=== PATIENT | female | born 1935 | race Caucasian/White ===

== ENCOUNTER 2020-06-11 11:56 | Emergency (ER) | payer MEDICARE, OTHER ==
[2020-06-11] MEDS ORDERED: ONDANSETRON HCL INJ/PF 4 MG/2 ML SDV IV ONE ×2 (12:42→14:05)
[2020-06-11] MEDS ORDERED: RINGERS SOLUTION,LACTATED 1,000 ML IV ONE (12:42)
[2020-06-11] MEDS ORDERED: MORPHINE SULFATE 10 MG/ML INJ IV ONE ×2 (12:42→14:05)
--- NOTE | 2020-06-11 12:44 | ER Document Report ---
ED Medical Screen (RME) - General Stated Complaint: SIDE PAIN, BLOOD PRESSURE ISSUE Time Seen by Provider: 06/11/20 12:36 Primary Care Provider: ROSA BECK MD [Primary Care Provider] - Follow up as needed Mode of Arrival: Wheelchair Information source: Patient Notes: HPI; 85-year-old female presents emergency room stating that her blood pressure was elevated this morning states systolic was greater than 200. She does not member her diastolic. Also states she started with some sudden sharp right- sided abdominal pain earlier today. Complains of nausea with vomiting. No fevers. No urinary symptoms. Did not take any medications for her symptoms. Denies any recent travel. No COVID-19 exposure. PE: Alert and oriented x3. Mild distress noted. Lungs: Clear to auscultation without rales, rhonchi, wheezes. Heart: Regular rate rhythm without murmurs, rubs, gallops. I have greeted and performed a rapid initial assessment of this patient. A comprehensive ED assessment and evaluation of the patient, analysis of test results and completion of the medical decision making process will be conducted by additional ED providers. I have specifically instructed the patient or family members with the patient to immediately return to any nursing staff should anything change in the patient's condition or with their chief complaint. TRAVEL OUTSIDE OF THE [place] IN LAST 30 DAYS: No Physical Exam - Vital signs Vitals: Temp Pulse Resp BP Pulse Ox 97.9 F 76 16 188/81 H 99 06/11/20 12:30 06/11/20 12:30 06/11/20 12:30 06/11/20 12:30 06/11/20 12:30 Course - Vital Signs Vital signs: Temp Pulse Resp BP Pulse Ox 97.9 F 76 16 188/81 H 99 06/11/20 12:30 06/11/20 12:30 06/11/20 12:30 06/11/20 12:30 06/11/20 12:30 Doctor's Discharge - Discharge Referrals: ROSA BECK MD [Primary Care Provider] - Follow up as needed
[2020-06-11 13:23] LABS: ABSOLUTE LYMPHOCYTES (AUTO) 1.1 10^3/uL (0.5-4.7); ABSOLUTE MONOCYTES (AUTO) 0.3 10^3/uL (0.1-1.4); ABSOLUTE NEUT (AUTO) 7.3 10^3/uL (1.7-8.2); BASOPHILS % (AUTO) 0.5 % (0-2); EOSINOPHILS % (AUTO) 0.2 % (0-6); HEMATOCRIT 40.1 % (36.0-47.0); HEMOGLOBIN 13.8 g/dL (12.0-15.5); LYMPHOCYTES % (AUTO) 12.5 % (13-45); MEAN CORPUSCULAR HEMOGLOBIN 28.9 pg (27.0-33.4); MEAN CORPUSCULAR HGB CONC 34.3 g/dL (32.0-36.0); MEAN CORPUSCULAR VOLUME 84 fl (80-97); PLATELET COUNT 232 10^3/uL (150-450); RED BLOOD COUNT 4.76 10^6/uL (3.72-5.28); RED CELL DISTRIBUTION WIDTH 14.5 % (11.5-14.0); SEGMENTED NEUTROPHILS % (AUTO) 83.8 % (42-78); TOTAL CELLS COUNTED % (AUTO) 100 %; WHITE BLOOD COUNT 8.7 10^3/uL (4.0-10.5)
[2020-06-11 13:45] LABS: ALBUMIN 4.6 g/dL (3.5-5.0); ALKALINE PHOSPHATASE 90 U/L (38-126); ANION GAP 12 (5-19); ASPARTATE AMINO TRANSFERASE 22 U/L (14-36); BILIRUBIN,TOTAL 1.4 mg/dL (0.2-1.3); BLOOD UREA NITROGEN 33 mg/dL (7-20); CALCIUM 10.3 mg/dL (8.4-10.2); CARBON DIOXIDE 25 mmol/L (22-30); CHLORIDE 104 mmol/L (98-107); GLUCOSE 142 mg/dL (75-110); POTASSIUM 4.4 mmol/L (3.6-5.0); TOTAL PROTEIN 7.8 g/dL (6.3-8.2)
[2020-06-11 13:55] LABS: APPEARANCE,URINE SLIGHTLY-CLOUDY; BILIRUBIN,URINE NEGATIVE (NEGATIVE); COLOR,URINE YELLOW; GLUCOSE, URINE NEGATIVE (NEGATIVE); KETONES,URINE NEGATIVE (NEGATIVE); LEUKOCYTE ESTERASE,URINE NEGATIVE (NEGATIVE); NITRITE,URINE NEGATIVE (NEGATIVE); PROTEIN,URINE NEGATIVE (NEGATIVE); URINE SPECIFIC GRAVITY 1.019; UROBILINOGEN,URINE NEGATIVE mg/dL (<2.0)
--- NOTE | 2020-06-11 14:27 | RADIOLOGY REPORT (SQ) ---
EXAM DESCRIPTION: CT ABD/PELVIS WITH IV ONLY IMAGES COMPLETED DATE/TIME: 06/11/2020 2:17 pm REASON FOR STUDY: abdominal pain COMPARISON: None. TECHNIQUE: CT scan of the abdomen and pelvis performed using helical scanning technique with dynamic intravenous contrast injection. No oral contrast. Images reviewed with lung, soft tissue, and bone windows. Reconstructed coronal and sagittal MPR images reviewed. Delayed images for evaluation of the urinary system also acquired. All images stored on PACS. All CT scanners at this facility use dose modulation, iterative reconstruction, and/or weight based d osing when appropriate to reduce radiation dose to as low as reasonably achievable (ALARA). [facility]: Dose Right [facility]: CareDose [facility]: Dose Right [facility]: Teradose 4D [facility]: KOTURA CONTRAST TYPE AND DOSE: 88 mL Omnipaque 350- low osmolar. RENAL FUNCTION: BUN 33, creatinine 1.09 RADIATION DOSE: . LIMITATIONS: None. FINDINGS: LOWER CHEST: No significant findings. No nodules or infiltrates. LIVER: Normal size. No masses. No dilated ducts. SPLEEN: Normal size. No focal lesions. PANCREAS: No masses. No significant calcifications. No adjacent inflammation or peripancreatic fluid collections. Pancreatic duct not dilated. GALLBLADDER: No identified stones by CT criteria. No inflammatory changes to suggest cholecystitis. ADRENAL GLANDS: No significant masses or asymmetry. RIGHT KIDNEY AND URETER: No solid masses. 2 to 3 mm right UVJ stone. Additional 3 to 4 mm nonobstr ucting stone in the upper pole. Moderate right-sided hydronephrosis and hydroureter. There is righ t perinephric stranding. LEFT KIDNEY AND URETER: No solid masses. No significant calcifications. No hydronephrosis or hydr oureter. AORTA AND VESSELS: No aneurysm. No dissection. Renal arteries, SMA, celiac without stenosis. RETROPERITONEUM: No retroperitoneal adenopathy, hemorrhage or masses. BOWEL AND PERITONEAL CAVITY: No masses or inflammatory changes. No free fluid or peritoneal masses. APPENDIX: Degenerative changes PELVIS: No mass. No free fluid. Normal bladder. ABDOMINAL WALL: Not visualized. BONES: Degenerative changes in the spine OTHER: No other significant finding. IMPRESSION: Right-sided hydronephrosis, hydroureter and perinephric stranding secondary to a 2 to 3 mm right UVJ stone. No other significant findings. TECHNICAL DOCUMENTATION: JOB ID: [id number] Quality ID # [id number]: Final reports with documentation of one or more dose reduction techniques (e.g., Au tomated exposure control, adjustment of the mA and/or kV according to patient size, use of iterative reconstruction technique) 2010 [employer]- All Rights Reserved Reading location - IP/workstation name: [email or web address]
--- NOTE | 2020-06-11 15:49 | ER Document Report ---
ED General - General Chief Complaint: Abdominal Pain Stated Complaint: SIDE PAIN, BLOOD PRESSURE ISSUE Time Seen by Provider: 06/11/20 12:36 Primary Care Provider: ROSA BECK MD [ACTIVE STAFF] - Follow up as needed Mode of Arrival: Wheelchair Information source: Patient TRAVEL OUTSIDE OF THE [place] IN LAST 30 DAYS: No - HPI Notes: Patient presents and complains of right lower abdominal pain. States it started this morning. Is been constant. Is severe. It does not radiate. Nothing makes it better or worse. No problems with urination or bowel movements. She has had one episode of vomiting. Patient denies any previous abdominal surgeries. No fever sweats or chills. - Related Data Allergies/Adverse Reactions: aspirin Allergy (Verified 06/11/20 13:37) Barbiturates Allergy (Verified 06/11/20 12:50) lidocaine [From Xylocaine] Allergy (Verified 06/11/20 12:50) Sulfa (Sulfonamide Antibiotics) Adverse Reaction (Verified 06/11/20 12:50) Past Medical History - General Information source: Patient - Social History Smoking Status: Never Smoker Frequency of alcohol use: None Drug Abuse: None Family History: Reviewed & Not Pertinent Patient has homicidal ideation: No - Past Medical History Cardiac Medical History: Reports: Hx Hypertension Pulmonary Medical History: Reports: Hx Asthma Past Surgical History: Reports: Hx Oral Surgery, Hx Tonsillectomy Review of Systems - Review of Systems Constitutional: denies: Chills, Fever Cardiovascular: denies: Chest pain, Palpitations Respiratory: denies: Cough, Short of breath -: Yes All other systems reviewed and negative Physical Exam - Vital signs Vitals: Temp Pulse Resp BP Pulse Ox 97.9 F 76 16 188/81 H 99 06/11/20 12:30 06/11/20 12:30 06/11/20 12:30 06/11/20 12:30 06/11/20 12:30 Interpretation: Hypertensive - General General appearance: Appears well, Alert - HEENT Head: Normocephalic, Atraumatic Eyes: Normal Pupils: PERRL - Respiratory Respiratory status: No respiratory distress Chest status: Nontender Breath sounds: Normal Chest palpation: Normal - Cardiovascular Rhythm: Regular Heart sounds: Normal auscultation Murmur: No - Abdominal Inspection: Normal Distension: No distension Bowel sounds: Normal Tenderness: Tender - Right lower quadrant and right upper quadrant are both tender to palpation but without peritoneal signs Organomegaly: No organomegaly - Back Back: Normal, Nontender - Extremities General upper extremity: Normal inspection, Nontender, Normal color, Normal ROM, Normal temperature General lower extremity: Normal inspection, Nontender, Normal color, Normal ROM, Normal temperature, Normal weight bearing. No: Zaira's sign - Neurological Neuro grossly intact: Yes Cognition: Normal Orientation: AAOx4 Justo Coma Scale Eye Opening: Spontaneous [place] Coma Scale Verbal: Oriented [place] Coma Scale Motor: Obeys Commands [place] Coma Scale Total: 15 Speech: Normal Motor strength normal: LUE, RUE, LLE, RLE Sensory: Normal - Psychological Associated symptoms: Normal affect, Normal mood - Skin Skin Temperature: Warm Skin Moisture: Dry Skin Color: Normal Course - Vital Signs Vital signs: Temp Pulse Resp BP Pulse Ox 97.9 F 76 16 188/81 H 99 06/11/20 13:20 06/11/20 12:30 06/11/20 12:30 06/11/20 12:30 06/11/20 12:30 - Laboratory Result Diagrams: 06/11/20 13:02 06/11/20 13:02 Laboratory results interpreted by me: 06/11/20 06/11/20 06/11/20 13:02 13:02 13:30 RDW 14.5 H Lymph % (Auto) 12.5 L Seg Neutrophils % 83.8 H BUN 33 H Est GFR ( Amer) 58 L Est GFR (MDRD) Non-Af 48 L Glucose 142 H Calcium 10.3 H Total Bilirubin 1.4 H Urine Blood LARGE H - Diagnostic Test Radiology reviewed: Image reviewed, Reports reviewed Discharge - Discharge Clinical Impression: Ureteral stone with hydronephrosis Condition: Stable Disposition: HOME, SELF-CARE Instructions: Kidney Stone ([facility]) Additional Instructions: Please call Dr. Lewis as soon as possible to arrange follow up Prescriptions: Tamsulosin HCl [Flomax 0.4 mg Cap.sr] 0.4 mg PO DAILY #7 cap.sr.24h Hydrocodone/Acetaminophen [Carver 5-325 mg Tablet] 1 tab PO Q6 PRN 3 Days #12 tablet PRN Reason: For Pain Referrals: FLOR LEWIS MD [NO LOCAL MD] - Follow up in 3-5 days
[2020-06-11] MEDS ORDERED: TAMSULOSIN HCL 0.4 MG CAP.SR.24H PO ONE (15:51)
[2020-06-11 16:12] VITALS: BP 148/70
--- NOTE | 2020-06-11 17:14 | RADIOLOGY REPORT (SQ) ---
EXAM DESCRIPTION: KUB/ABDOMEN (SINGLE VIEW) IMAGES COMPLETED DATE/TIME: 06/11/2020 4:56 pm REASON FOR STUDY: rlq pain COMPARISON: None. NUMBER OF VIEWS: One view. TECHNIQUE: Supine radiographic image of the abdomen acquired. LIMITATIONS: None. FINDINGS: BOWEL GAS PATTERN: Normal bowel gas pattern. No dilated loops. CALCIFICATIONS: No suspicious calcifications. SOFT TISSUES: Contrast in the kidneys and bladder. No obvious hydronephrosis. HARDWARE: Marked degenerative changes in spine. BONES: No acute fracture. No worrisome bone lesions. OTHER: No other significant finding. IMPRESSION: NO RADIOGRAPHIC EVIDENCE FOR ACUTE ABDOMINAL DISEASE. Contrast noted in the kidney and bladder from previous CT. No obvious hydronephrosis on KUB. TECHNICAL DOCUMENTATION: JOB ID: [id number] 2010 [employer]- All Rights Reserved Reading location - IP/workstation name: [email or web address]
--- OUTSIDE RECORDS SUMMARY | 2020-06-13 14:32 | XMS REPORT ---
:1935 Author Organization Replaced by [facility] Address [address] [place] [address] Care Team Providers Name Role Phone Janet Montoya Primary Care Physician Unavailable AIME Ring MD Attending Clinician Unavailable Marv Attending Clinician Unavailable Farhat Attending Clinician Unavailable Allergies, Adverse Reactions, Alerts Allergy Allergy Status Severity Reaction(s) Onset Inactive Treating C omments Name Type Date Date Clinician ASPIRIN Drug Active U allergy 01-11 00:00: 00 MONTELUKAST Drug Active U SODIUM allergy 01-11 00:00: 00 SULFA Miscellane Active U (SULFONAMID ous 01-11 E allergy 00:00: ANTIBIOTICS 00 ) CETIRIZINE Drug Active U HCL allergy 01-11 00:00: 00 BARBITURATE Miscellane Active U S ous 01-11 allergy 00:00: 00 LIDOCAINE Drug Active U 0 HCL allergy 01-11 00:00: 00 LIDOCAINE Drug Active Moderate sweats 2015-08 HCL allergy (severe) 08-09 00:00: 00 BARBITURATE Miscellane Active Moderate rash 2015-08 S ous (moderate) 08-09 allergy 00:00: 00 SULFA Miscellane Active Moderate rash 2015-08 (SULFONAMID ous (moderate) 1-09 E allergy 00:00: ANTIBIOTICS 00 ) ASPIRIN Drug Active Moderate upset 2015-08 allergy stomach 08-09 (moderate to 00:00: severe) 00 BARBITURATE Miscellane Inactive MO rash 2015-08 S ous (moderate) 09 allergy 00:00: 00 SULFA Miscellane Inactive MO rash 2015-08 (SULFONAMID ous (moderate) 1-09 E allergy 00:00: ANTIBIOTICS 00 ) Simvastatin Simvastati Active TABS n TABS Medications Ordered Filled Start Stop Current Ordering Indication Dosage Frequency Signature Comments Components Medication Medication Date Date Medication? Clinician (SIG) Name Name Warfarin 2020-0 Yes Anthony 1 QD Warfarin Sodium 5 MG 11-06 Rave Sodium 5 Oral Tablet 00:00: MG Oral 00 Tablet TAKE 1 TABLET DAILY. Quantity: 30 Refills: 5 Anthony Coburn Start : 07-Nov-2019 Active Xarelto 15 2020-0 No 1 QD Xarelto 15 MG Oral 4-06 MG Oral Tablet 00:00: Tablet 00 TAKE 1 TABLET DAILY Refills: 0 Start : 05-Nov-2019 Active Magnesium 2020-0 Yes Anthony 1 QD Magnesium Oxide 400 11-04 Rave Oxide 400 MG Oral 00:00: MG Oral Tablet 00 Tablet TAKE 1 TABLET DAILY. Quantity: 90 Refills: 3 Anthony Coburn Start : 05-Nov-2019 Active Cephalexin 2020-0 Yes Q0.3333D Cephalexin 500 MG Oral 06 500 MG Tablet 00:00: Oral 00 Tablet TAKE 1 TABLET 3 TIMES DAILY. Refills: 0 Start : 05-Nov-2019 Active hydroCHLORO 2020-0 Karrie Cruz hydroCHLOR thiazide 25 11-04 Kimoe Othiazide MG Oral 00:00: 25 MG Oral Tablet 00 Tablet TAKE 1 TABLET BY MOUTH EVERY DAY Quantity: 90 Refills: 3 KimoAnthony paez Start : 05-Nov-2019 Active Isosorbide 2020-0 Karrie Cruz Isosorbide Mononitrate 11-04 Irish Mononitrat ER 30 MG 00:00: e ER 30 MG Oral Tablet 00 Oral Extended Tablet Release 24 Extended Hour Release 24 Hour TAKE ONE TABLET BY MOUTH EVERY DAY Quantity: 90 Refills: 3 KimoAnthony paez Start : 05-Nov-2019 Active ProAir HFA 2020-0 Yes ProAir HFA 108 (90 11-04 108 (90 Base) 00:00: Base) MCG/ACT 00 MCG/ACT Inhalation Inhalation Aerosol Aerosol Solution Solution INHALE 1 TO 2 PUFFS EVERY 4 TO 6 HOURS NEEDED. Refills: 0 Start : 05-Nov-2019 Active 8.5 GM Inhaler Levothyroxi 2020-0 Yes QD Levothyrox ne Sodium 11-04 ine Sodium 50 MCG Oral 00:00: 50 MCG Tablet 00 Oral Tablet TAKE 1 TABLET DAILY DIRECTED. Refills: 0 Start : 05-Nov-2019 Active Aspirin 2020-0 Yes 1 QD Aspirin Adult Low 11-04 Adult Low Dose 81 MG 00:00: Dose 81 MG Oral Tablet 00 Oral Delayed Tablet Release Delayed Release TAKE 1 TABLET DAILY. Quantity: 90 Refills: 0 Start : 05-Nov-2019 Active Enalapril 2019-0 No 1 QD Enalapril Maleate 20 4-06 Maleate 20 MG Oral 00:00: MG Oral Tablet 00 Tablet TAKE 1 TABLET DAILY. Refills: 0 Start : 05-Nov-2019 Active CeleBREX 2020-0 Yes QD CeleBREX 200 MG Oral 4-06 200 MG Capsule 00:00: Oral 00 Capsule TAKE 1 CAPSULE DAILY WITH A MEAL. Refills: 0 Start : 05-Nov-2019 Active NexIUM 24HR 2019-0 Yes QD NexIUM 20 MG Oral 4-06 24HR 20 MG Capsule 00:00: Oral Delayed 00 Capsule Release Delayed Release TAKE 1 CAPSULE ONCE DAILY. Refills: 0 Start : 05-Nov-2019 Active Atenolol 25 2019-0 Yes 1 QD Atenolol MG Oral 4-06 25 MG Oral Tablet 00:00: Tablet 00 TAKE 1 TABLET DAILY. Quantity: 90 Refills: 3 Start : 05-Nov-2019 Active Atorvastati 2019-0 Yes Atorvastat n Calcium -06 in Calcium 20 MG Oral 00:00: 20 MG Oral Tablet 00 Tablet Take 1 tablet at bedtime Quantity: 90 Refills: 3 Start : 05-Nov-2019 Active Enalapril 2019-0 Yes Anthony 1 QD Enalapril Maleate 20 4-06 Rave Maleate 20 MG Oral 00:00: MG Oral Tablet 00 Tablet TAKE 1 TABLET DAILY. Quantity: 90 Refills: 1 Anthony Coburn Start : 05-Nov-2019 Active metFORMIN 2018-08 Yes metFORMIN HCl - 500 2-19 HCl - 500 MG Oral 00:00: MG Oral Tablet 00 Tablet TAKE ONE TABLET BY MOUTH TWICE DAILY BEFORE MEALS - This is A new DOSE Quantity: 60 Refills: 0 Start : 9Active Problems Condition Condition Condition Status Onset Resolution Last Treatin g Comments Name Details Category Date Date Treatment Clinician Date History of History of Problem Resolve sick sinus sick sinus d syndrome syndrome COPD COPD Problem Active (chronic (chronic obstructive obstructive pulmonary pulmonary disease) disease) Paroxysmal Paroxysmal Problem Active atrial atrial fibrillatio fibrillatio n n Benign Benign Problem Active essential essential hypertensio hypertensio n n CAD CAD Problem Active (coronary (coronary artery artery disease), disease), hydaburg hydaburg coronary coronary artery artery Procedures Procedure Date / Time Performed Performing Clinician Luisana paez EKG 2020-05-06 00:00:00 OFFICE/OUTPATIENT VISIT EST 2018-01-11 08:00:00 OFFICE/OUTPATIENT VISIT, THAIS 2016-06-09 13:05:00 History of Cardiac catheterization with stent placement History of Knee arthroscopy Results Test Description Test Time Test Comments Text Results Atomic Results Result Comments PT/INR-Flowsheet only 2020-05-20 09:51:00 Test Item Value Reference Range Comments Diagnosis (test code = Diagnosis) Atrial Fibrillation FSRange (test code = FSRange) 2.0-3.0 Dosage (test code = Dosage) 2.5 mg daiyl w/ 5mg M-W-F INR (test code = INR) 2.5 New Dosage (test code = New Dosage) no changes Next INR (test code = Next INR) 3-4 weeks Any missed doses (test code = Any missed doses) No Any changes in medication? (test code = Any changes in none medication?) Are you taking Coumadin or Warafin? (test code = Are Warfarin you taking Coumadin or Warafin?) Any bruising? (test code = Any bruising?) No Any bloody nose, gums bleeding or blood in stool? (test No code = Any bloody nose, gums bleeding or blood in stool?) Weight (test code = 3141-9) 181.4 {lb} Systolic (test code = 8480-6) 126 {mm Hg} Diastolic (test code = 8462-4) 78 {mm Hg} Heart Rate (test code = 8867-4) 76 {bpm} Comment (test code = Comment) Staff (test code = Staff) Sultana Clemente PT/INR-Flowsheet [id number] 10:40:00 Test Item Value Reference Range Comments Diagnosis (test code = Diagnosis) Atrial Fibrillation FSRange (test code = FSRange) 2.0-3.0 Dosage (test code = Dosage) 2.5mg daily x 5mg MWF INR (test code = INR) 1.7 New Dosage (test code = New Dosage) Next INR (test code = Next INR) 3 weeks Any missed doses (test code = Any No missed doses) Any changes in medication? (test code no = Any changes in medication?) Are you taking Coumadin or Warafin? Warfarin (test code = Are you taking Coumadin or Warafin?) Any bruising? (test code = Any No bruising?) Any bloody nose, gums bleeding or No blood in stool? (test code = Any bloody nose, gums bleeding or blood in stool?) Weight (test code = 3141-9) 180 {lb} Systolic (test code = 8480-6) 119 {mm Hg} Diastolic (test code = 8462-4) 69 {mm Hg} Heart Rate (test code = 8867-4) 72 {bpm} Staff (test code = Staff) Leonela Koehler PT/INR-Flowsheet [id number] 09:43:00 Test Item Value Reference Range Comments Diagnosis (test code = Atrial Fibrillation Diagnosis) FSRange (test code = FSRange) 2.0-3.0 Dosage (test code = Dosage) 2.5mg daily except 5mg -W- INR (test code = INR) 2.4 New Dosage (test code = New no changes Dosage) Next INR (test code = Next INR) 2 weeks Any missed doses (test code = No Any missed doses) Any changes in medication? no (test code = Any changes in medication?) Are you taking Coumadin or Warfarin Warafin? (test code = Are you taking Coumadin or Warafin?) Any bruising? (test code = Any No bruising?) Any bloody nose, gums bleeding No or blood in stool? (test code = Any bloody nose, gums bleeding or blood in stool?) Weight (test code = 3141-9) 182 {lb} Systolic (test code = 8480-6) 142 {mm Hg} Diastolic (test code = 8462-4) 81 {mm Hg} Heart Rate (test code = 8867-4) 71 {bpm} Staff (test code = Staff) Serena Reeves PT/INR-Flowsheet [id number] 10:56:00 Test Item Value Reference Range Comments Diagnosis (test code = Diagnosis) Atrial Fibrillation FSRange (test code = FSRange) 2.0-3.0 Dosage (test code = Dosage) INR (test code = INR) 3.5 New Dosage (test code = New Dosage) Next INR (test code = Next INR) [id number] Any changes in medication? (test code = No Any changes in medication?) Are you taking Coumadin or Warafin? Warfarin (test code = Are you taking Coumadin or Warafin?) Any bruising? (test code = Any No bruising?) Any bloody nose, gums bleeding or blood No in stool? (test code = Any bloody nose, gums bleeding or blood in stool?) Weight (test code = 3141-9) 181 {lb} Systolic (test code = 8480-6) 119 {mm Hg} Diastolic (test code = 8462-4) 76 {mm Hg} Heart Rate (test code = 8867-4) 74 {bpm} Staff (test code = Staff) Jordyn Vuong PT/INR-Flowsheet [id number] 10:14:00 Test Item Value Reference Range Comments Diagnosis (test code = Diagnosis) Atrial Fibrillation FSRange (test code = FSRange) 2.0-3.0 Dosage (test code = Dosage) INR (test code = INR) 3.2 New Dosage (test code = New Dosage) Next INR (test code = Next INR) 2 weeks Any missed doses (test code = Any missed No doses) Any changes in medication? (test code = No Any changes in medication?) Are you taking Coumadin or Warafin? Warfarin (test code = Are you taking Coumadin or Warafin?) Any bruising? (test code = Any No bruising?) Any bloody nose, gums bleeding or blood No in stool? (test code = Any bloody nose, gums bleeding or blood in stool?) Weight (test code = 3141-9) 181 {lb} Systolic (test code = 8480-6) 121 {mm Hg} Diastolic (test code = 8462-4) 69 {mm Hg} Heart Rate (test code = 8867-4) 69 {bpm} Staff (test code = Staff) Jordyn Vuong PT/INR-Flowsheet [id number] 09:34:00 Test Item Value Reference Range Comments Diagnosis (test code = Diagnosis) Atrial Fibrillation FSRange (test code = FSRange) 2.0-3.0 Dosage (test code = Dosage) INR (test code = INR) 2.7 New Dosage (test code = New Dosage) NO CHANGES Next INR (test code = Next INR) 4 WEEKS Any missed doses (test code = Any missed No doses) Any changes in medication? (test code = NO Any changes in medication?) Are you taking Coumadin or Warafin? Warfarin (test code = Are you taking Coumadin or Warafin?) Any bruising? (test code = Any No bruising?) Any bloody nose, gums bleeding or blood No in stool? (test code = Any bloody nose, gums bleeding or blood in stool?) Weight (test code = 3141-9) 184 {lb} Systolic (test code = 8480-6) 108 {mm Hg} Diastolic (test code = 8462-4) 64 {mm Hg} Heart Rate (test code = 8867-4) 67 {bpm} Staff (test code = Staff) Stephani Baird PT/INR-Flowsheet [id number] 09:37:00 Test Item Value Reference Range Comments Diagnosis (test code = Diagnosis) Atrial Fibrillation FSRange (test code = FSRange) 2.0-3.0 Dosage (test code = Dosage) 5mg daily x 2.5mg MWF INR (test code = INR) 2.6 New Dosage (test code = New Dosage) no changes Next INR (test code = Next INR) 4 weeks Any missed doses (test code = Any No missed doses) Any changes in medication? (test code no changes = Any changes in medication?) Are you taking Coumadin or Warafin? Warfarin (test code = Are you taking Coumadin or Warafin?) Any bruising? (test code = Any No bruising?) Any bloody nose, gums bleeding or No blood in stool? (test code = Any bloody nose, gums bleeding or blood in stool?) Weight (test code = 3141-9) 182 {lb} Systolic (test code = 8480-6) 112 {mm Hg} Diastolic (test code = 8462-4) 66 {mm Hg} Heart Rate (test code = 8867-4) 79 {bpm} Comment (test code = Comment) continue same dose Staff (test code = Staff) Rodrick Schuster HEMOGLOBIN [id number] 10:08:005.8LIPID [id number] 10:08:00 Test Item Value Reference Range Comments CHOLESTEROL, TOTAL (test code = 66636160) 251 mg/dL <200 LDL-CHOLESTEROL (test code = 82553852) 174 mg/dL (calc) TRIGLYCERIDES (test code = 70300657) 131 mg/dL <150 NON HDL CHOLESTEROL (test code = 87511913) 201 mg/dL (calc) <130 HDL CHOLESTEROL (test code = 96269323) 50 mg/dL >50 CHOL/HDLC RATIO (test code = 04970886) 5.0 (calc) <5.0 COMPREHENSIVE METABOLIC [id number] 10:08:00 Test Item Value Reference Range Comments SODIUM (test code = 83218387) 139 mmol/L 135-146 GLUCOSE (test code = 53731322) 109 mg/dL 65-99 POTASSIUM (test code = 33439882) 4.2 mmol/L 3.5-5.3 UREA NITROGEN (BUN) (test code = 22 mg/dL 7-25 08856862) eGFR (test code = 93 mL/min/1.73m2 > OR = 60 15452697) ALBUMIN (test code = 37549632) 4.2 g/dL 3.6-5.1 AST (test code = 73613076) 14 U/L 10-35 CALCIUM (test code = 84266475) 9.7 mg/dL 8.6-10.4 CREATININE (test code = 16252993) 0.71 mg/dL 0.60-0.88 BILIRUBIN, TOTAL (test code = 0.8 mg/dL 0.2-1.2 89978150) eGFR NON-AFR. SIERRA LEONEAN (test code = 80 mL/min/1.73m2 > OR = 60 48494846) GLOBULIN (test code = 17296909) 2.7 g/dL (calc) 1.9-3.7 ALKALINE PHOSPHATASE (test code = 76 U/L 33-130 80399443) CHLORIDE (test code = 35989277) 103 mmol/L 98-110 BUN/CREATININE RATIO (test code = NOT APPLICABLE (calc) 6-22 06869837) ALT (test code = 60042934) 9 U/L 6-29 ALBUMIN/GLOBULIN RATIO (test code = 1.6 (calc) 1.0-2.5 79029636) CARBON DIOXIDE (test code = 92156467) 27 mmol/L 20-31 PROTEIN, TOTAL (test code = 32131292) 6.9 g/dL 6.1-8.1 TSH W/REFLEX TO [id number] 10:08:005.74CBC (INCLUDES DIFF/PLT)2018-01-11 10:08:00 Test Item Value Reference Range Comments HEMOGLOBIN (test code = 72653456) 13.1 g/dL 11.7-15.5 ABSOLUTE BASOPHILS (test code = 76208584) 72 cells/uL 0-200 LYMPHOCYTES (test code = 74976043) 32.3 % RED BLOOD CELL COUNT (test code = 43830491) 4.62 Million/uL 3.80 -5.10 ABSOLUTE NEUTROPHILS (test code = 78867145) 3420 cells/uL 1500 -7800 EOSINOPHILS (test code = 52272387) 3.4 % ABSOLUTE LYMPHOCYTES (test code = 69061913) 1938 cells/uL 850- 3900 RDW (test code = 77047707) 14.3 % 11.0-15.0 ABSOLUTE MONOCYTES (test code = 38253507) 366 cells/uL 200-95 0 MONOCYTES (test code = 84534032) 6.1 % MCH (test code = 92644089) 28.4 pg 27.0-33.0 WHITE BLOOD CELL COUNT (test code = 6.0 Thousand/uL 3.8-10.8 53228790) NEUTROPHILS (test code = 87856449) 57 % PLATELET COUNT (test code = 80421386) 261 Thousand/uL 140-400 HEMATOCRIT (test code = 98583006) 39.5 % 35.0-45.0 MPV (test code = 80238346) 12.0 fL 7.5-12.5 MCHC (test code = 77681264) 33.2 g/dL 32.0-36.0 ABSOLUTE EOSINOPHILS (test code = 70210599) 204 cells/uL 15-5 00 MCV (test code = 69212313) 85.5 fL 80.0-100.0 BASOPHILS (test code = 76011349) 1.2 % T4, [id number] 10:08:000.9Phosphate (as Phosphorus)2017-01-07 00:01:00 Test Item Value Reference Range Comments Phosphorus (test code = 478756) 3.4 mg/dL 2.1-4.3 CMP with Estimated [id number] 00:01:00 Test Item Value Reference Range Comments Sodium (test code = 682127) 141 mmol/L 135-146 Est GFR, NonAfrican Serbian (test code = 324148) 79 mL/min >=60 Alkaline Phosphatase (test code = 001546) 71 U/L 33-130 AST/SGOT (test code = 464167) 17 U/L 10-35 Chloride (test code = 831601) 103 mmol/L 98-110 ALT/SGPT (test code = 599596) 16 U/L 6-29 Total Protein (test code = 624935) 6.5 g/dL 6.1-8.1 Glucose (test code = 102083) 122 mg/dL 65-99 Potassium (test code = 300121) 4.1 mmol/L 3.5-5.3 Calcium (test code = 945463) 9.1 mg/dL 8.6-10.4 Bilirubin, Total (test code = 851747) 1.0 mg/dL 0.2-1.2 Creatinine (test code = 037527) 0.73 mg/dL 0.60-0.93 Albumin (test code = 839276) 3.9 g/dL 3.6-5.1 Est GFR, (test code = 886441) >89 mL/min > =60 BUN (test code = 713389) 26 mg/dL 7-25 CO2 (test code = 416949) 22 mmol/L 20-31 [id number] 00:01:00 Test Item Value Reference Range Comments Magnesium (test code = 169925) 2.0 mg/dL 1.5-2.5 [id number] 00:01:00 Test Item Value Reference Range Comments TSH (test code = 128931) 6.44 mIU/L Hemoglobin A1c with [id number] 00:01:00 Test Item Value Reference Range Comments eAG (calc) (test code = 235390) 131 mg/dL Hemoglobin A1C (test code = 408237) 6.2 % <5.7 CBC with [id number] 00:01:00 Test Item Value Reference Range Comments MPV (test code = 935071) 9.9 fL 7.5-12.5 Hematocrit (test code = 964214) 39.4 % 35.0-45.0 WBC (test code = 212438) 5.2 K/uL 3.8-10.8 Absolute Eos (test code = 156 cells/uL 15-500 023228) RDW (test code = 128491) 15.6 % 11.0-15.0 MCH (test code = 231382) 27.4 pg 27.0-33.0 Baso % (test code = 720458) 1 % Smear Review (test code = Criteria for review not met 648302) RBC (test code = 651955) 4.67 MIL/uL 3.80-5.10 Lymph % (test code = 349417) 28 % Neutrophils % (test code = 61 % 795146) Eos % (test code = 945030) 3 % MCV (test code = 629729) 84.4 fL 80.0-100.0 MCHC (test code = 194132) 32.5 g/dL 32.0-36.0 Hemoglobin (test code = 930239) 12.8 g/dL 11.7-15.5 Absolute Baso (test code = 52 cells/uL 0-200 763953) Delta % (test code = 813682) 7 % Absolute Neut (test code = 3172 cells/uL 6857-0881 004507) Absolute Delta (test code = 364 cells/uL 200-950 949791) Platelet Count (test code = 208 K/uL 140-400 108993) Absolute Lymph (test code = 1456 cells/uL 850-3900 732081) Assessments Condition Name Status Diagnosis Date Treating Clinici an Paroxysmal atrial fibrillation Active Benign essential hypertension Active CAD (coronary artery disease), hydaburg Active coronary artery Benign essential hypertension Active CAD (coronary artery disease), hydaburg Active coronary artery Paroxysmal atrial fibrillation Active Essential (primary) hypertension Active Moderate persistent asthma, uncomplicated Active Encntr screen mammogram for malignant Active neoplasm of breast Encounter for screening for osteoporosis Active Age-related nuclear cataract, bilateral Active Deprivation amblyopia, left eye Active Cysts of left lower eyelid Active Other hereditary corneal dystrophies Active Encounters Start End Encounter Admission Attending Care Care Encounter Date/Time Date/Time Type Type Clinicians Facility Department ID 2020-05-20 2020-05-20 Appointment [facility] [address] [facility] [id number] 10:00:00 10:01:21 ; [facility] Jhonathan Ring, Lab LabMD 2020-05-06 2020-05-06 [address] [facility] [id number] 10:30:00 10:30:00 ; Anthony Coburn 2020-04-29 2020-04-29 Appointment [facility] [id number] 10:45:00 10:45:00 ; [facility] Jhonathan Ring, Lab Lab, 2020-04-15 2020-04-15 Appointment [facility] [id number] 10:00:00 10:00:00 ; [facility] Jhonathan Ring, Lab Lab, 2020-04-01 2020-04-01 Appointment [facility] [id number] 10:15:00 10:15:00 ; [facility] Jhonathan Ring, Lab Lab, 2020-03-18 2020-03-18 Appointment [facility] [id number] 10:00:00 10:00:00 ; [facility] Jhonathan Ring, Lab Lab, 2020-02-19 2020-02-19 Appointment [facility] [id number] 09:30:00 09:30:00 ; [facility] Jhonathan Ring, Lab Lab, 2020-01-22 2020-01-[address] [facility] [id number] 09:45:00 09:45:00 ; [facility] Jhonathan Ring, Lab Lab, 2020-01-01 2020-01-01 Appointment [facility] [id number] 11:15:00 11:15:00 ; [facility] Jhonathan Ring, Lab Lab, 2019-12-18 2019-12-18 Appointment [facility] [id number] 09:30:00 09:30:00 ; [facility] Jhonathan Ring, Lab Lab, 2019-12-04 2019-12-04 Appointment [facility] [id number] 09:45:00 09:45:00 ; [facility] Jhonathan Ring, Lab Lab, 2019-11-23 2019-11-23 Appointment [facility] [id number] 10:00:00 10:00:00 ; [facility] Jhonathan Ring, Lab Lab, 2019-11-15 2019-11-15 Appointment [facility] [id number] 10:15:00 10:15:00 ; [facility] Jhonathan Ring, Lab Lab, 2019-11-07 2019-11-07 Appointment [facility] [id number] 13:00:00 13:00:00 ; KimojeannineAnthony 2018-01-11 2018-01-11 Outpatient Marv [facility] D9 [id number] 08:00:00 08:00:00 Melly Children [id number] s [id number] and [id number] [place] 2016-06-09 2016-06-09 Outpatient MOISES Dougherty 13D [id number] 13:05:00 13:05:00 [facility] [id number] Family History Family Member Diagnosis Comments Start Date Stop Date Father Family history of of parent Social History This patient has no known social history. Vital Signs Vital Name Observation Time Observation Value Comments Systolic blood pressure 2020-05-06 10:22:00 138 mm[Hg] Loca tion: RUE; Position: Sittin g Diastolic blood pressure 2020-05-06 10:22:00 68 mm[Hg] Loc ation: RUE; Position: Sittin g Weight 2020-05-06 10:22:00 181 [lb_av] Body mass index (BMI) 2020-05-06 10:22:00 28.35 kg/m2 [Ratio] Heart Rate 2020-05-06 10:22:00 74 /min Respiratory rate 2020-05-06 10:22:00 18 /min Hospital Discharge Instructions NameDatesDetailsInstructions not documentedNameDatesDetailsInstructions not documentedNameDatesDetailsInstructions not documented NameDatesDetailsInstructions not documentedNameDatesDetailsInstructions not documentedNameDatesDetailsInstructions not documented NameDatesDetailsInstructions not documented
== END 2020-06-11 17:12 | disposition home or self-care (01) ==
LOC: ER 11:56
DX: N13.2 Hydronephrosis with renal and ureteral calculous obstruction (principal); R10.31 Right lower quadrant pain; R10.813 Right lower quadrant abdominal tenderness; R11.10 Vomiting, unspecified; I10 Essential (primary) hypertension; J45.909 Unspecified asthma, uncomplicated; Z88.8 Allergy status to other drugs, medicaments and biological substances; Z88.4 Allergy status to anesthetic agent
CPT/HCPCS: 99285; 96361; 96374; 96375; 36415; 87086; 83690; 85025; 87088; 80053; 81001; 74018; 74177; J2270; A9270; J2405; J7120; 87186